=== PATIENT | male | born 1955 | race Two or more races ===

== ENCOUNTER 2017-08-04 13:10 | Outpatient (CLI) | payer OTHER | END 2017-08-04 13:22 | disposition home or self-care (01) | LOC: RAD 501 13:10 | DX: H25.819 Combined forms of age-related cataract, unspecified eye (principal); Z01.810 Encounter for preprocedural cardiovascular examination; A15.0 Tuberculosis of lung ==

== ENCOUNTER 2017-12-04 08:05 | Outpatient (CLI) | payer OTHER | END 2017-12-04 08:19 | disposition home or self-care (01) | LOC: RAD 08:05 | DX: R10.32 Left lower quadrant pain (principal); R22.43 Localized swelling, mass and lump, lower limb, bilateral ==

== ENCOUNTER 2018-07-27 15:13 | Outpatient (CLI) | payer OTHER | END 2018-07-27 15:33 | disposition home or self-care (01) | LOC: RAD 15:13 | DX: R07.2 Precordial pain (principal); J91.8 Pleural effusion in other conditions classified elsewhere ==

== ENCOUNTER 2019-05-18 17:56 | Outpatient (CLI) | payer OTHER | END 2019-05-18 18:13 | disposition home or self-care (01) | LOC: RAD 17:56 | DX: M24.551 Contracture, right hip (principal); M24.552 Contracture, left hip; M25.561 Pain in right knee; M25.562 Pain in left knee ==

== ENCOUNTER → 2022-07-21 07:02 | Outpatient (CLI) | payer OTHER | END | disposition home or self-care (01) | LOC: LAB 07:02 | PROVIDERS: ATTEND Orthopaedic Surgery | DX: D64.89 Other specified anemias (principal); E88.89 Other specified metabolic disorders; D68.8 Other specified coagulation defects; N39.0 Urinary tract infection, site not specified; A49.02 Methicillin resistant Staphylococcus aureus infection, unspecified site; E11.9 Type 2 diabetes mellitus without complications; I49.9 Cardiac arrhythmia, unspecified; I10 Essential (primary) hypertension; Z76.89 Persons encountering health services in other specified circumstances; M25.571 Pain in right ankle and joints of right foot; M25.572 Pain in left ankle and joints of left foot ==

== ENCOUNTER 2022-07-30 10:30 | Inpatient (IN) | payer OTHER ==
[~2022-07-30] VITALS: Ht 182.9 cm; Wt 106.6 kg
[2022-07-30] MEDS ORDERED: COZAAR50 MG PO (12:22)
[2022-08-07] MEDS ORDERED: CEFADROXIL500 MG PO (08:31)
== END 2022-08-07 13:14 | disposition home or self-care (01) | DRG 470 ==
LOC: SURG 08-04 05:48 → O/R 08-04 05:48 → SURH 08-04 07:00 → SURG 08-04 19:27 → SURH 08-05 11:26
PROVIDERS: ADMIT Orthopaedic Surgery; ATTEND Orthopaedic Surgery
PROC: 0SRC0J9 Replacement of Right Knee Joint with Synthetic Substitute, Cemented, Open Approach (ICD-10-PCS; principal; 2022-08-04 07:00)
DX: M17.11 Unilateral primary osteoarthritis, right knee (principal); I10 Essential (primary) hypertension

== ENCOUNTER 2022-08-11 09:21 | Day surgery (SDC) | payer OTHER ==
[~2022-08-11 09:21] MED LIST: CEFADROXIL500 MG PO; COZAAR50 MG PO
== END 2022-08-11 20:15 | disposition home or self-care (01) ==
LOC: CIR.AMB 09:21
PROVIDERS: ATTEND Orthopaedic Surgery
DX: M24.561 Contracture, right knee (principal); T81.33XA Disruption of traumatic injury wound repair, initial encounter; Z96.651 Presence of right artificial knee joint; Z20.822 Contact with and (suspected) exposure to COVID-19

== ENCOUNTER 2022-09-03 14:13 | Outpatient (CLI) | payer OTHER | END 2022-09-03 14:25 | disposition home or self-care (01) | LOC: RAD 14:13 | PROVIDERS: ATTEND Orthopaedic Surgery | DX: M79.632 Pain in left forearm (principal) ==

== ENCOUNTER 2023-09-03 10:18 | Outpatient (CLI) | payer OTHER | END 2023-09-03 10:24 | disposition home or self-care (01) | LOC: RAD 10:18 | PROVIDERS: ATTEND Orthopaedic Surgery | DX: M25.512 Pain in left shoulder (principal); M54.50 Low back pain, unspecified ==

== ENCOUNTER 2024-05-15 16:26 | Emergency (ER) | payer OTHER ==
[~2024-05-15] VITALS: Ht 182.9 cm; Wt 103.4 kg
[2024-05-15] MEDS ORDERED: FAMOtidine 10 MG/ML (4ML VIAL) IV PUSH ONE (17:00)
[2024-05-15 17:19] LABS: HEMATOCRIT 49.7 % (39.0-48.0); HEMOGLOBIN 16.5 g/dL (13-16.00); MEAN CELL VOLUME 89.3 fL (80.0-100.00); MEAN CORPUSCULAR HEMOGLOBIN 29.6 pg (27.00-32.0); MEAN CORPUSCULAR HGB CONC 33.2 g/dl (32.0-36.0); PLATELET COUNT 282 K/uL (150-450); RED BLOOD COUNT 5.57 M/uL (4.00-6.00); RED CELL DISTRIBUTION WIDTH 14.8 % (11.5-14.5)
[2024-05-15 17:44] LABS: ALBUMIN 3.7 gm/dL (3.4-5.0); BILIRUBIN TOTAL 0.66 mg/dL (0.3-1.2); CALCIUM 9.7 mg/dL (8.5-10.1); CREATININE SERUM 1.05 mg/dL (0.70-1.30); GFR 70.24; GLOBULINA 3.1 G/DL (2.4-3.5); POTASSIUM 4.45 mEq/L (3.5-5.1); TOTAL PROTEIN 6.8 gm/dL (6.4-8.2)
[2024-05-15] MEDS ORDERED: KETOROLAC TROMETHAMINE 15 MG VIAL IV ONE (18:30)
[2024-05-15] MEDS ORDERED: ONDANSETRON HCL 2 MG/ML VIAL IV ONE (18:30)
[2024-05-15] MEDS ORDERED: HYOSCYAMINE SULFATE 0.125 MG TAB.SUBL SL ONE (18:30)
== END 2024-05-15 21:33 | disposition home or self-care (01) ==
LOC: ER 16:28
PROVIDERS: General Practice
DX: K29.70 Gastritis, unspecified, without bleeding (principal); R10.9 Unspecified abdominal pain; I10 Essential (primary) hypertension; Z91.048 Other nonmedicinal substance allergy status
CPT/HCPCS: 36415; 76700; 93005; 96365; 99284; J1885; J2405; J3490